=== PATIENT | male | born 1980 | race Caucasian/White ===

== ENCOUNTER 2017-04-09 05:04 | Day surgery (SDC) | payer OTHER ==
[~2017-04-09] VITALS: Ht 182.9 cm; Wt 76.7 kg
--- NOTE | ~2017-04-09 | HP ---
PATIENT: KATHY HAMPTON MEDICAL RECORD: [id number] ACCOUNT: [id number] LOCATION:[facility] : 78 ADMISSION DATE: 04/09/17 HISTORY AND PHYSICAL EXAMINATION CHIEF COMPLAINT: Pain. HISTORY OF PRESENT ILLNESS: The patient has been having epigastric pain. It radiates around to the back. It is associated with eating. This has been going on for 2-3 times a week for about a year. He has had nausea. No vomiting. The patient had liver enzymes that were normal. Ultrasound of the gallbladder revealed gallbladder wall thickening. No stones were noted within the gallbladder. The gallbladder wall was thickened to 5.4 mm. Bile ducts appeared unremarkable on ultrasound. Pain is intermittent. It is of moderate intensity. Food aggravates. Nothing alleviates. MEDICINES AT THE CUSTODIAL: None. PAST MEDICAL AND SURGICAL HISTORY: Negative. ALLERGIES: No known drug allergies. REVIEW OF SYSTEMS: As described above, otherwise negative. PHYSICAL EXAMINATION: GENERAL: The patient does not appear acutely ill. He does not appear chronically ill. VITAL SIGNS: Reviewed. HEAD: External ears appear normal. EYES: Extraocular movements are intact. NECK: Trachea is midline. CHEST: No intercostal retractions. PULMONARY: Nonlabored, no stridor. ABDOMEN: Nontender. EXTREMITIES: No peripheral cyanosis. INTEGUMENT: No rash, no ulcerations. IMPRESSION: Acalculous cholecystitis. PLAN: Laparoscopic cholecystectomy, intraoperative cholangiography, possible liver biopsy. The risks, possible complications and alternatives to the procedure were explained to the patient. He elects to proceed. The discussion specifically included, but was not limited to, bleeding requiring emergency reoperation, infection, intestinal injury and an open procedure. TRANSINT:[id number] Voice Confirmation ID: [id number] DOCUMENT ID: [id number] CC: Berna Dugan APN HISTORY AND PHYSICAL [id number] KATHY HAMPTON ROBERT MD CC: ARI ROSADO MD and SHEY HERRING MD [id number] DICTATION DATE: 04/09/17 1243 [facility] LEADER: 04/09/17 1415 [facility] 04/09/17 [place] [address]
--- NOTE | ~2017-04-09 | OP ---
PATIENT NAME: KATHY HAMPTON MEDICAL RECORD: [id number] :78 LOCATION:D[facility] ADMISSION DATE: SURGEON: ARI QUIROZ MD OPERATION DATE: 04/09/17 DATE OF OPERATION: 04/09/2017 PREOPERATIVE DIAGNOSIS: Acute cholecystitis. POSTOPERATIVE DIAGNOSES: Acute cholecystitis with hepatomegaly. PROCEDURES: 1. Laparoscopic cholecystectomy. 2. Intraoperative cholangiography without immediate surgeon interpretation. 3. An 18-gauge core needle liver biopsy. SURGEON: Ari Quiroz MD. GENERAL MANAGER: None. BLOOD LOSS: Minimal. ANESTHESIA: General. COMPLICATIONS: None. The risks, possible complications and alternatives to procedure were explained to the patient. He elected to proceed. The discussion specifically included, but was not limited to, bleeding requiring an emergency reoperation, infection, intestinal injury, as well as common bile duct injury. OPERATIVE COURSE: The patient was conveyed to the operating room electively on 04/09/2017. General anesthesia was induced by the anesthesia staff. The abdomen was sterilely prepped and draped. An incision was accomplished within the umbilicus. There was a small umbilical hernia present. Subcutaneous flaps were created sharply. Stay sutures of 0 Vicryl were placed on either side of the umbilical hernia defect, which was enlarged. A 12-mm trocar was introduced through this defect. CO2 insufflation was begun. Once a sufficient pneumoperitoneum had been achieved, a 5-mm trocar was inserted through an incision in the epigastrium. Another 5-mm trocar was inserted through an incision in the right upper quadrant. Another 5-mm trocar was inserted through an incision far laterally in the right upper quadrant. An abdominal survey was undertaken. I noted no inflammatory process. No evidence of intraabdominal adhesions except a few adhesions to the gallbladder. The indication for the liver biopsy was hepatomegaly. I percutaneously accessed the right upper quadrant utilizing an 18-gauge core needle liver biopsy device. Cores were obtained over the convexity of the liver. The biopsy sites were made hemostatic with electrocautery. I then grasped the gallbladder. It was retracted anteriorly. I advanced a cholangiogram trocar and punctured the fundus of the gallbladder. I aspirated bile. I then injected dye. Under real time fluoroscopy, static images were obtained. These were cholangiographic images, which were sent to the radiologist for interpretation. OPERATIVE REPORT [id number] KATHY HAMPTON I aspirated bile and removed the cholangiogram trocar. The gallbladder was grasped and retracted cephalad. The infundibulum was grasped and retracted laterally. Blunt dissection was begun on the triangle of [place]. One cystic artery and 1 cystic duct were identified. These were clipped multiply and divided between clips. The gallbladder was then excised from its bed and the liver. It was placed within a bag retrieval device and was withdrawn through the umbilical fascial defect. The 12-mm trocar was replaced and the abdomen reinsufflated. I irrigated and aspirated the right upper quadrant. There was no bleeding even at low pressure of 8. All the trocars were removed and the abdomen desufflated. The umbilical fascial defect was closed with a horizontal mattress of 0 Vicryl suture. The skin at the umbilicus was closed with interrupted 4-0 Vicryl Rapide sutures. The other skin incisions were closed with interrupted intracuticular 3-0 Vicryls. Benzoin and Steri-Strips were applied. The patient was then extubated and conveyed to post-anesthesia care unit where he was in stable condition. He will be dismissed home on [place] for pain. I will see him in the office on a p.r.n. basis. There is no need for him to follow up with me in the office unless he develops a complication related to this operative procedure. The sutures at the umbilicus will likely fall out on their own in 2-3 weeks. TRANSINT:[id number] Voice Confirmation ID: [id number] DOCUMENT ID: [id number] CC: Maci TempleThe [facility] ELDER Heredia ROBERT MD CC: ARI ROSADO MD and SHEY HERRING MD [id number] DICTATION DATE: 04/09/17 1455 PULL OVER MACHINE OPERATOR: 04/09/17 1551 [facility] 04/09/17 [facility] [address] [place] [address]
[2017-04-09 08:53] VITALS: BP 125/69; Ht 182.9 cm; Wt 76.7 kg
--- NOTE | 2017-04-09 15:33 | NUR ---
RECEIVED PT FROM STABLE. ANGELA
--- NOTE | 2017-04-09 18:40 | NUR ---
1540 BACK FROM [facility], RESP EVEN AND NONLABORED. 5 BANDAIDS TO ABDOMEN C/D/I NO BLEEDING NO NAUSEA PAIN A 2.
--- NOTE | 2017-04-09 18:49 | NUR ---
1610 TAKING IN FULL LIQUIDS. NO NAUSEA OR PAIN.
--- NOTE | 2017-04-09 18:54 | NUR ---
1640 TRIED TO URINATE UP AND MOVING AND UNABLE TO VOID. ENCOURAGED FLUIDS.
--- NOTE | 2017-04-09 18:58 | NUR ---
1740 UP AND VOIDED ALREADY WENT OVER DISCHARGE INSTRUCTIONS WITH GUARD. TO SENIOR CARE 1744 VIA W/C.
== END 2017-04-09 17:45 | disposition other institution (70) ==
LOC: D.OPS 05:04
DX: K81.0 Acute cholecystitis (principal); R16.0 Hepatomegaly, not elsewhere classified; K21.9 Gastro-esophageal reflux disease without esophagitis; Z01.812 Encounter for preprocedural laboratory examination